=== PATIENT | male | born 1975 | race Caucasian/White ===

== ENCOUNTER 2020-07-15 00:17 | Emergency (ER) | payer BC, MEDICAID ==
[~2020-07-15] VITALS: Ht 175.3 cm; Wt 90.7 kg
--- NOTE | 2020-07-15 00:18 | NUR ---
PT BIBA BLS TO ER BED 04
[2020-07-15 00:20] VITALS: BP 107/77
--- NOTE | 2020-07-15 00:50 | NUR ---
MD DIETZ AT BEDSIDE
--- NOTE | 2020-07-15 01:07 | NUR ---
PT WAS FOUND BY HIS FAMILY PASSED OUT IN THE YARD. PT ATTENDED A TODAY AND HAS BEEN DRINKING ALL DAY. RESPIRATIONS REGULAR AND UNLABORED. A/O X 1. PT HAS GARBLED SPEECH, UNABLE TO FOLLOW COMMANDS OR ANSWER QUESTIONS. PT LAYING IN BED WEEPING OUT LOUD. PT ON BEDSIDE MONITOR. PT INCONTINENT OF URINE. NO SIGNS OF TRAUMA TO PT'S BODY. BED IN LOWEST POSITION AND SIDERAILS UP X 2. NKA HX - HTN
--- NOTE | 2020-07-15 01:39 | NUR ---
SPOKE TO PT'S DIAMOND IN THE LOBBY. SHE SAID HE HAD BEEN DRINKING BUT NOT THAT MUCH TO MAKE HIM THE WAY HE WAS ACTING. HE WAS WALKING, TRIPPED OVER A KIDDIE GATE AND HIT HIS HEAD ON THE CEMENT. SHE CALLED 911 BECAUSE HE WAS ACTING CONFUSED AND DISORIENTED. ADVISED PT WILL BE RECEIVING A CT SCAN OF THE HEAD TO R/O ANY TRAUMA.
--- NOTE | 2020-07-15 01:56 | NUR ---
PT TAKEN TO CT SCAN VIA [facility]
--- NOTE | 2020-07-15 02:14 | NUR ---
PT RETURNED FROM CT
--- NOTE | 2020-07-15 02:19 | NUR ---
PT MORE AWAKE NOW, CAN'T REMEMBER EXACTLY WHAT HAPPENED BUT KNOWS HE WAS DRINKING A LOT TONIGHT. PT STATES HE DOESN'T USUALLY DRINK. ASKING FOR A "MARIELLA & Freda ANGUIANO" ADVISED WE NEED TO WAIT FOR THE CT RESULTS BEFORE HE CAN EAT. PT STILL WEEPING OUT LOUD.
[2020-07-15] MEDS ORDERED: KETOROLAC 60 MG/2 ML VIAL IM ONE ×2 (02:34→02:35)
--- NOTE | 2020-07-15 03:21 | NUR ---
PT SLEEPING QUIETLY, RESPIRATIONS REGULAR, UNLABORED, AND EVEN. O2 SAT 96% ON RA. PT REMAINS ON BEDSIDE MONITOR.
[2020-07-15 04:14] VITALS: BP 127/80
== END 2020-07-15 04:15 | disposition home or self-care (01) ==
LOC: MED 00:17
DX: S02.2XXA Fracture of nasal bones, initial encounter for closed fracture (principal); F10.129 Alcohol abuse with intoxication, unspecified; I10 Essential (primary) hypertension; W18.09XA Striking against other object with subsequent fall, initial encounter; Y93.89 Activity, other specified; Y92.89 Other specified places as the place of occurrence of the external cause; Y99.8 Other external cause status
CPT/HCPCS: 70450; 70486; 96372; 99285; J1885